=== PATIENT | female | born 1985 | race Caucasian/White ===

== ENCOUNTER 2021-02-27 06:06 | Inpatient (IN) | payer BC, MEDICAID ==
[2021-02-27] MEDS ORDERED: CITRIC ACID-SODIUM CITRATE 15 ML CUP PO ONE (06:22)
[2021-02-27 06:34] LABS: Basophils % (A) 1 %; Eosinophils # (A) 0.1 k/uL (0-0.7); Eosinophils % (A) 1 %; HCT 35.7 % (34.0-46.0); HGB 12.7 gm/dL (11.4-16.0); Lymphocytes # (A) 1.2 k/uL (1.0-4.8); Lymphocytes % (A) 19 %; MCH 31.9 pg (25.0-35.0); MCHC 35.7 g/dL (31.0-37.0); MCV 89.3 fL (80.0-100.0); Mean Platelet Volume 9.8; Monocytes # (A) 0.4 k/uL (0-1.0); Monocytes % (A) 7 %; Neutrophils # (A) 4.4 k/uL (1.3-7.7); Neutrophils % (A) 71 %; Platelet Count 113 k/uL (150-450); RDW 12.3 % (11.5-15.5); WBC 6.2 k/uL (3.8-10.6)
[2021-02-27] MEDS: LACTATED RINGERS 1,000 ML IV SCH ×4 (07:15→16:32)
[2021-02-27] MEDS ORDERED: NALBUPHINE 10 MG/ML (1 ML AMP) ONE (07:57)
[2021-02-27] MEDS ORDERED: MORPHINE SULFATE (PF) 0.3 MG/0.3 ML SYR ONE (07:57)
[2021-02-27] MEDS ORDERED: ONDANSETRON 4 MG/2 ML VIAL ONE (07:57)
[2021-02-27] MEDS ORDERED: diphenhydrAMINE 50 MG/ML 1 ML VIAL IVP PRN ×3 (08:41→09:04)
[2021-02-27] MEDS ORDERED: ONDANSETRON 4 MG/2 ML VIAL IVP PRN ×2 (08:41→09:04)
[2021-02-27] MEDS ORDERED: NALOXONE 0.4 MG/ML 1 ML VIAL IV PRN ×2 (08:41→09:04)
[2021-02-27] MEDS ORDERED: MORPHINE SULFATE 2 MG/ML SYRINGE IVP PRN (08:41)
[2021-02-27] MEDS ORDERED: diphenhydrAMINE 50 MG CAP PO PRN (09:04)
[2021-02-27] MEDS ORDERED: ZOLPIDEM 5 MG TAB PO PRN (09:04)
[2021-02-27] MEDS ORDERED: SIMETHICONE 80 MG CHEWABLE PO PRN (09:04)
[2021-02-27] MEDS ORDERED: diphenhydrAMINE 25 MG CAP PO PRN (09:04)
[2021-02-27] MEDS ORDERED: METOCLOPRAMIDE 5 MG/ML 2 ML VIAL IVP PRN (09:04)
--- NOTE | 2021-02-27 09:09 | P.HPOB ---
History of Present Illness H&P Date: 02/27/21 Chief Complaint: IUP at 39 and 0, history of 1 desires repeat This is a 35-year-old at 39 0/7 weeks that presents today for scheduled repeat section. Patient has been receiving routine care with myself which has been essentially uncomplicated. Patient's prior was for arrest of descent. Patient has been noting good movement denies contractions loss of fluid or vaginal bleeding. On bloodwork this patient is a blood type of B+, rubella status is immune, RPR is nonreactive, B surface antigen is negative, HIV is negative. Patient did pass her 1 hour gestational diabetes screen. Review of Systems Constitutional: Denies fatigue, Denies fever Ears, nose, mouth and throat: Denies headache Cardiovascular: Reports leg edema Respiratory: Denies dyspnea Gastrointestinal: Denies constipation, Denies diarrhea, Denies nausea, Denies vomiting Genitourinary: Reports Past Medical History Additional Past Medical History / Comment(s): Migraines History of Any Multi-Drug Resistant Organisms: None Reported Past Surgical History: Section Past Anesthesia/Blood Transfusion Reactions: No Reported Reaction Past Psychological History: Anxiety Smoking Status: Never smoker Past Alcohol Use History: None Reported Past Drug Use History: None Reported - Past Family History Mother Family Medical History: Hyperlipidemia, Hypertension Medications and Allergies Home Medications Medication Instructions Recorded Confirmed Type Pantoprazole Sodium [Protonix] 40 mg PO DIRECTED 02/27/21 02/27/21 History Pnv No.95/Ferrous Fum/Folic AC 1 tab PO DAILY 02/27/21 02/27/21 History [ Multivitamin Tablet] Allergies Allergy/AdvReac Type Severity Reaction Status Date / Time No Known Allergies Allergy Verified 02/27/21 06:19 Exam Osteopathic Statement: *. No significant issues noted on an osteopathic structural exam other than those noted in the History and Physical/Consult. 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 Results Result Diagrams: 02/27/21 06:22 Abnormal Lab Results - Last 24 Hours (Table) 02/27/21 Range/Units 06:22 Plt Count 113 L (150-450) k/uL Assessment and Plan (1) Term Current Visit: Yes Status: Acute Code(s): Z34.90 - ENCNTR FOR SUPRVSN OF NORMAL , UNSP, UNSP TRIMESTER SNOMED Code(s): 19669376 (2) H/O section Current Visit: Yes Status: Acute Code(s): Z98.891 - HISTORY OF UTERINE SCAR FROM PREVIOUS SURGERY SNOMED Code(s): 134027147 Plan: This 35-year-old at 39-0/7 weeks presents for scheduled repeat section. Patient is counseled on procedure and all questions are answered. Patient is taken back to the operating suite for scheduled procedure.
--- NOTE | 2021-02-27 09:12 | P.OP ---
Date of Procedure: 02/27/21 Preoperative Diagnosis: IUP at 39-0/7 weeks, history of section 1, desires repeat Postoperative Diagnosis: Same Procedure(s) Performed: Repeat section Anesthesia: spinal Surgeon: Tita Cowan Corporate Communications Intern #1: Amy Tan Estimated Blood Loss (ml): 635 IV fluids (ml): 1,100 Urine output (ml): 600 Pathology: none sent Condition: stable Disposition: observation Indications for Procedure: History of 1 desires repeat Operative Findings: Normal uterus tubes and ovaries are appreciated, viable male infant delivered at 822 Description of Procedure: The patient was prepped and draped in the usual fashion after spinal anesthesia was administered by anesthesia. A Pfannenstiel incision was made and extended of the abdominal cavity without difficulty. The bladder peritoneum was elevated and incised and reflected distally. A 2 cm incision was made in the transverse plane of the lower uterine segment to enter the uterus at which time clear fluid was noted. The incision was extended in both directions. . The head was encountered within the field and delivered up and through the incision where the nose and mouth were thoroughly suctioned. Remainder of the infant was delivered onto the surgical field where the cord was doubly clamped, cut, and the was passed to awaiting RN. The placenta was delivered manually, intact, and was grossly normal with a grossly normal three-vessel cord. The uterus was exteriorized and the interior cavity of the uterus swept of any remaining placental and membranous fragments with a laparotomy sponge. The margins of the incision were grasped with Raya clamps and the incision closed in 2 layers. First layer was a running locking layer of 0 Vicryl from margin to margin followed by a second layer of imbricating 0 Vicryl from margin to margin. Any small points of bleeding were then made hemostatic with the Bovie. Once hemostasis was achieved, the posterior cul-de-sac was suctioned with a guard and the uterine and ovarian findings are as noted above. The uterus was replaced within the abdominal cavity and the gutters swept of any remaining blood fluid or clot. Bleeding was noted on the lateral edge of the uterus therefore a sbuthq-fo-xjkou suture was used to obtain hemostasis, an additional area toward the middle portion of the strut incision was noted to be bleeding therefore an additional ngocqh-nb-lwemi suture was used to obtain hemostasis. The incision was again reexamined and hemostasis was noted to be excellent. Any small point of bleeding were made hemostatic with the Bovie. Once hemostasis was achieved the parietal peritoneum was loosely reapproximated. The layer of muscles were examined and made hemostatic with the Bovie. Attention was then turned to the fascia which was closed with 2 running stitches of 0 Vicryl proceeding from the lateral margins to the midpoint. The subcutaneous tissues were irrigated, made hemostatic with the Bovie, and reapproximated with a running stitch of 30 plain catgut. The skin was reapproximated with 4-0 Vicryl. Estimated blood loss for the case was approximately 635 mL. All sponge instrument and needle counts are correct. There were no complications. The patient tolerated the procedure well and proceeded to the recovery room in stable condition. Both mother and infant are resting comfortably in recovery.
[2021-02-27] MEDS ORDERED: OXYTOCIN 30 UNITS/500 ML NS 30 UNIT in SALINE 1 500ML.BAG IV SCH (09:15)
[2021-02-27] MEDS ORDERED: ACETAMINOPHEN TAB 500 MG TAB PO SCH (12:00)
[2021-02-27] MEDS ORDERED: ACETAMINOPHEN IV (For NPO) 1,000 MG in EMPTY BAG 1 BAG IVPB PRN (12:00)
[2021-02-27] MEDS ORDERED: IBUPROFEN 600 MG TAB PO SCH (15:00)
[2021-02-27] MEDS ORDERED: IBUPROFEN IV 800 MG in SODIUM CHLORIDE 0.9% 250 ML IV PRN (15:00)
[2021-02-27] MEDS: IBUPROFEN 600 MG TAB PO SCH ×2 (16:32→22:12)
[2021-02-27] MEDS: ACETAMINOPHEN TAB 500 MG TAB PO SCH (19:32)
[2021-02-28] MEDS: ACETAMINOPHEN TAB 500 MG TAB PO SCH ×3 (01:08→14:41)
[2021-02-28] MEDS: IBUPROFEN 600 MG TAB PO SCH ×3 (04:24→17:47)
[2021-02-28 07:12] LABS: Basophils % (A) 0 %; Eosinophils # (A) 0.1 k/uL (0-0.7); Eosinophils % (A) 1 %; HCT 33.5 % (34.0-46.0); HGB 11.6 gm/dL (11.4-16.0); Lymphocytes # (A) 1.2 k/uL (1.0-4.8); Lymphocytes % (A) 8 %; MCH 31.6 pg (25.0-35.0); MCHC 34.6 g/dL (31.0-37.0); MCV 91.3 fL (80.0-100.0); Mean Platelet Volume 9.5; Monocytes # (A) 0.8 k/uL (0-1.0); Monocytes % (A) 5 %; Neutrophils # (A) 12.8 k/uL (1.3-7.7); Neutrophils % (A) 85 %; Platelet Count 118 k/uL (150-450); RBC 3.67 m/uL (3.80-5.40); RDW 12.4 % (11.5-15.5)
[2021-02-28] MEDS: LACTATED RINGERS 1,000 ML IV SCH ×2 (07:17)
[2021-02-28 08:21] VITALS: BP 100/64; PULSE 66; RESP 16; TEMP 97.7
[2021-02-28] MEDS ORDERED: PRENATAL VIT-IRON-FOLIC ACID 1 EACH CAP PO SCH (09:00)
[2021-02-28] MEDS: SENNOSIDES-DOCUSATE SODIUM 1 EACH TAB PO SCH ×3 (10:00→11:27)
--- NOTE | 2021-02-28 10:07 | P.DS ---
Providers Date of admission: 02/27/21 06:06 Attending physician: Tita Cowan Primary care physician: Stated None Hospital Course: Assistants is a 35-year-old white female 2 para 1001 EDC 03/06/2021 at 39 weeks gestation who presented for repeat transverse section. is remarkable for rubella status immune, blood type B positive. Please see dictated history and physical examination for details. Patient underwent a repeat low transverse section giving to a liveborn male with scores of 6 and 8 at one and 5 minutes respectively. Infant weighed 6 lbs. 15 oz. The surgery was unremarkable, normal-appearing tubes and ovaries bilaterally. Please see dictated operative note for details. This morning the patient is doing well. She is voiding, ambulating, passing flatus without difficulty. Vital signs are stable and she is afebrile. Fundus is firm and in the midline, symmetric and 18 week size. Extremities are negative for edema. Breast-feeding is going well. Lochia rubra is minimal to moderate, no large blood clot passage. Incision is clean and dry, intact, Steri-Strips applied. Breasts are not engorged. Patient is judged to be in good condition for discharge home. infant has been circumcised and is also cleared for discharged per campaign manager. Patient will follow-up with her primary clinic specialist in 2 weeks. She will use dbgn-lqg-tckdiop Advil or Aleve, alternating with Tylenol, as needed for pain. Continue vitamin daily. No intercourse tampons or douching. No heavy lifting. She will call with any fevers shakes or chills, foul smelling or copious lochia, with the passage of large blood clots, with any pain not alleviated by cflx-spl-hoshkbr products, or indeed with any concerns. will follow-up with campaign manager as per recommendations. Assessment: Doing well post operative day #1 Patient Condition at Discharge: Good Plan - Discharge Summary Discharge Rx Participant: No New Discharge Prescriptions: No Action Pnv No.95/Ferrous Fum/Folic AC [ Multivitamin Tablet] 1 tab PO DAILY Pantoprazole Sodium [Protonix] 40 mg PO DIRECTED Discharge Medication List Pantoprazole Sodium [Protonix] 40 mg PO DIRECTED 02/27/21 [History] Pnv No.95/Ferrous Fum/Folic AC [ Multivitamin Tablet] 1 tab PO DAILY 02/27/21 [History] Follow up Appointment(s)/Referral(s): Tita Cowan DO [Doctor of Osteopathic Medicine] - 2 Weeks Discharge Disposition: HOME SELF-CARE
--- NOTE | 2021-02-28 19:29 | P.PN ---
Progress Note - Text Progress Note Date: 02/28/21 Postoperative day 1 status post section under spinal anesthesia, and i ntrathecal morphine given for postoperative analgesia, patient doing well, there is no anesthesia related complications, Patient had no headache, vital signs stable , Assessment and plan= postop day 1 status post , doing well there is no anesthesia related complication.
== END 2021-02-28 16:00 | disposition home or self-care (01) | DRG 788 ==
LOC: 4FBP 06:06
PROVIDERS: ADMIT Obstetrics & Gynecology Obstetrics; ATTEND Obstetrics & Gynecology Obstetrics
PROC: 10D00Z1 Extraction of Products of Conception, Low, Open Approach (ICD-10-PCS; principal; 2021-02-27 08:00)
DX: O34.211 Maternal care for low transverse scar from previous cesarean delivery (principal); F41.9 Anxiety disorder, unspecified; Z37.0 Single live birth; Z3A.39 39 weeks gestation of pregnancy; Z82.49 Family history of ischemic heart disease and other diseases of the circulatory system
CPT/HCPCS: 85025; 86850; 86900; 86901